=== PATIENT | female | born 1945 | race Caucasian/White ===

== ENCOUNTER → 2017-10-27 | Outpatient (CLI) | payer OTHER ==
[~2017-10-27] MED LIST: REGADENOSON 0.4 MG/5 ML SYRINGE ONE
== END | disposition home or self-care (01) ==
LOC: CFH 12:48
PROVIDERS: ATTEND Internal Medicine Cardiovascular Disease
DX: Z01.818 Encounter for other preprocedural examination (principal); R94.31 Abnormal electrocardiogram [ECG] [EKG]; F17.210 Nicotine dependence, cigarettes, uncomplicated
CPT/HCPCS: 78452; 93017; A9502; J2785

== ENCOUNTER → 2017-10-28 | Outpatient (CLI) | payer OTHER ==
[~2017-10-28] MED LIST changes: +BUPR150T20 PO; +CLINDAMYCIN 150 MG/ML, 6ML ONE; +LEVO137T2 PO; +LOSA50TA6 PO; +OMEP-110 PO; -REGADENOSON 0.4 MG/5 ML SYRINGE ONE; +VERA240T86 PO
== END | disposition home or self-care (01) ==
LOC: CVU 11:46
PROVIDERS: ATTEND Internal Medicine Cardiovascular Disease
DX: Z01.810 Encounter for preprocedural cardiovascular examination (principal); I74.5 Embolism and thrombosis of iliac artery; I35.8 Other nonrheumatic aortic valve disorders; I51.7 Cardiomegaly; I10 Essential (primary) hypertension; Q21.1 Atrial septal defect; F17.200 Nicotine dependence, unspecified, uncomplicated
CPT/HCPCS: 93306; 93978

== ENCOUNTER 2017-11-02 10:30 | Inpatient (IN) | payer OTHER ==
[2017-10-31 13:01] LABS: CHLORIDE 105 mmol/L (98-107)
[2017-10-31 13:06] LABS: ALANINE AMINOTRANSFERASE 24 U/L (12-78); ALBUMIN 3.7 g/dL (3.4-5.0); ALKALINE PHOSPHATASE 76 U/L (45-117); ANION GAP 9 mmol/L (5-15); BILIRUBIN,TOTAL 0.4 mg/dL (0.2-1.0); CALCIUM 8.8 mg/dL (8.5-10.1); CREATININE 1.17 mg/dL (0.55-1.02); TOTAL PROTEIN 7.7 g/dL (6.4-8.2)
[~2017-11-02] VITALS: Ht 160 cm; Wt 85.0 kg
[~2017-11-02 10:30] MED LIST changes: -CLINDAMYCIN 150 MG/ML, 6ML ONE
[2017-11-02] MEDS ORDERED: FENTANYL PF 100 MCG/2ML ONE (10:38)
[2017-11-02] MEDS ORDERED: LACTATED RINGERS 1,000 ML IV SCH (11:15)
[2017-11-02 11:18] VITALS: BP 136/71
[2017-11-02] MEDS ORDERED: GABAPENTIN 300 MG CAPSULE PO ONE (11:30)
[2017-11-02] MEDS ORDERED: SCOPOLAMINE PATCH, 1.5MG PATCH.TD72 TD ONE (11:30)
[2017-11-02] MEDS ORDERED: ACETAMINOPHEN 500 MG TABLET PO ONE (11:30)
[2017-11-02] MEDS ORDERED: GLYCOPYRROLATE 0.2MG/1ML, 5ML ONE (11:52)
[2017-11-02] MEDS ORDERED: DEXAMETHASONE 4 MG/ML, 1ML ONE (11:52)
[2017-11-02] MEDS ORDERED: PROPOFOL 10 MG/ML, 20ML ONE (11:52)
[2017-11-02] MEDS ORDERED: CLINDAMYCIN 150 MG/ML, 6ML ONE (11:52)
[2017-11-02] MEDS ORDERED: EPHEDRINE 50 MG/ML, 1ML ONE (11:52)
[2017-11-02] MEDS ORDERED: SUCCINYLCHOLINE 20 MG/ML, 10ML ONE (11:52)
[2017-11-02] MEDS ORDERED: ONDANSETRON 2MG/ML, 2ML ONE ×2 (11:52)
[2017-11-02] MEDS ORDERED: ROCURONIUM 10 MG/ML,10ML ONE (11:52)
[2017-11-02] MEDS ORDERED: CEFAZOLIN 1,000 MG ONE (11:52)
[2017-11-02] MEDS ORDERED: PROPOFOL 50 ML ONE ×2 (12:05→12:43)
[2017-11-02] MEDS ORDERED: ROPIvacaine/PF 0.2%, 100ML 550 ML (check volume) EPIDCONT ONE ×2 (13:00)
[2017-11-02] MEDS ORDERED: ROPIvacaine/PF 0.2%, 100ML 550 ML (check volume) INJ ONE (13:00)
[2017-11-02] MEDS ORDERED: DIAZEPAM 5 MG/ML, 2ML IVPush PRN (13:30)
[2017-11-02] MEDS ORDERED: OXYcodone 5 MG/5 ML ORAL.SOL UDC PO PRN (13:30)
[2017-11-02] MEDS ORDERED: HYDROmorphone 1 MG/ML, 1ML IV PRN (13:30)
[2017-11-02] MEDS ORDERED: PROMETHAZINE 25 MG/ML, 1ML IV PRN (13:30)
[2017-11-02] MEDS ORDERED: FENTANYL PF 100 MCG/2ML IV PRN (13:30)
[2017-11-02] MEDS ORDERED: MEPERIDINE/PF 25MG/0.5ML IVPush PRN (13:30)
[2017-11-02] MEDS ORDERED: OXYcodone/APAP 5/325MG TABLET PO PRN (16:00)
[2017-11-02] MEDS ORDERED: ONDANSETRON 2MG/ML, 2ML IV PRN (16:00)
[2017-11-02] MEDS: POTASSIUM CHLORIDE 40 MEQ in D5%-0.45% NACL 1,000 ML IV SCH (16:57)
[2017-11-02 18:34] VITALS: BP 135/65
[2017-11-02] MEDS: VERAPAMIL ER 240MG TABLET.ER PO SCH (20:34)
[2017-11-02] MEDS: SODIUM CHLORIDE FLUSH 10ML SYR IVF SCH (20:34)
[2017-11-02] MEDS: CEFAZOLIN PMX 1GM/50ML 50 ML IVPB SCH (20:34)
[2017-11-03 00:13] VITALS: BP 114/68
[2017-11-03] MEDS: CEFAZOLIN PMX 1GM/50ML 50 ML IVPB SCH (04:02)
[2017-11-03 04:58] VITALS: BP 143/76
[2017-11-03] MEDS ORDERED: LEVOTHYROXINE 137 MCG TABLET PO SCH (06:00)
[2017-11-03] MEDS ORDERED: OMEPRAZOLE 20 MG CAPSULE.DR PO SCH (07:30)
[2017-11-03 08:00] VITALS: BP 152/80
[2017-11-03] MEDS ORDERED: BUPROPION SR 150 MG TABLET PO SCH (09:00)
[2017-11-03] MEDS ORDERED: LOSARTAN 50MG TABLET PO SCH (09:00)
[2017-11-03] MEDS: VERAPAMIL ER 240MG TABLET.ER PO SCH (09:10)
[2017-11-03] MEDS: SODIUM CHLORIDE FLUSH 10ML SYR IVF SCH (09:11)
[2017-11-03] MEDS: POTASSIUM CHLORIDE 40 MEQ in D5%-0.45% NACL 1,000 ML IV SCH (09:11)
[2017-11-03 12:59] VITALS: BP 124/75
[2017-11-03] MEDS ORDERED: OXYC5CAP2 PO (14:18)
== END 2017-11-03 14:45 | disposition home or self-care (01) | DRG 483 ==
LOC: ORIP 10:30 → 4NOR 15:40 → DCLOUNGE 11-03 14:32
PROVIDERS: ADMIT Orthopaedic Surgery; ATTEND Orthopaedic Surgery
PROC: 0LS30ZZ Reposition Right Upper Arm Tendon, Open Approach (ICD-10-PCS; 2017-11-02)
PROC: 0RRJ00Z Replacement of Right Shoulder Joint with Reverse Ball and Socket Synthetic Substitute, Open Approach (ICD-10-PCS; principal; 2017-11-02 12:25)
DX: S42.24 4-part fracture of surgical neck of humerus (principal)
CPT/HCPCS: 36415; 80053; 93005; C1713; C1776; J0690; J1100; J2405; J2704; J3010; J3480; J3490; J0330; J7120

== ENCOUNTER 2018-03-29 10:58 | Day surgery (SDC) | payer OTHER ==
[2018-03-27 11:23] LABS: MEAN CORPUSCULAR HEMOGLOBIN 29.3 pg (27.0-34.8); MEAN CORPUSCULAR HGB CONC 33.5 g/dL (32.4-35.8); MEAN CORPUSCULAR VOLUME 87.3 fL (80-100); MEAN PLATELET VOLUME 7.6 fL (7.4-10.4); PLATELET COUNT 295 x10^3/uL (130-400); RED CELL DISTRIBUTION WIDTH 15.2 % (9.6-15.2)
[2018-03-27 11:25] LABS: ANION GAP 8 mmol/L (5-15); BASOPHILS # (AUTO) 0.05 x10^3/uL (0-0.1); BASOPHILS % (AUTO) 1 % (0-1); CALCIUM 8.7 mg/dL (8.5-10.1); CHLORIDE 107 mmol/L (98-107); EOSINOPHILS % (AUTO) 5 % (1-7); LYMPHOCYTES # (AUTO) 1.53 x10^3/uL (1-3.4); LYMPHOCYTES % (AUTO) 17 % (22-44); MD SCAN; MONOCYTES # (AUTO) 0.63 x10^3/uL (0.2-0.8); MONOCYTES % (AUTO) 7 % (2-9); NEUTROPHILS # (AUTO) 6.24 x10^3/uL (1.8-6.8); NEUTROPHILS % (AUTO) 71 % (42-75)
[~2018-03-29] VITALS: Ht 160 cm; Wt 85.0 kg
[~2018-03-29 10:58] MED LIST changes: +ATOR20TA PO; +BUPR150T73 PO; +OXYC5CAP2 PO
[2018-03-29 11:35] VITALS: BP 121/72
[2018-03-29] MEDS ORDERED: SODIUM CHLORIDE 0.9% 1,000 ML IV SCH (11:37)
[2018-03-29] MEDS ORDERED: VISIPAQUE 270 MG/ML, 50ML BOTTLE ONE (13:00)
[2018-03-29] MEDS ORDERED: MIDAZOLAM 1 MG/ML, 5ML ONE (13:26)
[2018-03-29] MEDS ORDERED: PROTAMINE SULFATE 10 MG/ML, 25ML ONE (13:26)
[2018-03-29] MEDS ORDERED: FLUMAZENIL 0.1 MG/1 ML, 5ML ONE (13:26)
[2018-03-29] MEDS ORDERED: NALOXONE 1 MG/ML, 2ML ONE (13:26)
[2018-03-29] MEDS ORDERED: FENTANYL PF 100 MCG/2ML ONE (13:26)
[2018-03-29] MEDS ORDERED: NITROGLYCERIN 5 MG/ML, 10ML ONE (13:26)
[2018-03-29] MEDS ORDERED: HEPARIN 1,000 UNITS/ML, 10ML ONE (13:26)
[2018-03-29] MEDS ORDERED: OXYcodone/APAP 5/325MG TABLET ONE (16:14)
[2018-03-29] MEDS ORDERED: OXYcodone/APAP 5/325MG TABLET PO ONE (16:30)
[2018-03-29] MEDS ORDERED: OXYcodone/APAP 5/325MG TABLET PO PRN (16:30)
== END 2018-03-29 19:00 | disposition home or self-care (01) ==
LOC: OUT 10:58
PROVIDERS: ATTEND Internal Medicine Cardiovascular Disease
DX: I70.213 Atherosclerosis of native arteries of extremities with intermittent claudication, bilateral legs (principal); J44.9 Chronic obstructive pulmonary disease, unspecified; I10 Essential (primary) hypertension; E78.5 Hyperlipidemia, unspecified; Z88.6 Allergy status to analgesic agent; F17.210 Nicotine dependence, cigarettes, uncomplicated
CPT/HCPCS: 36415; 37221; 75630; 80048; 85025; 99156; 99157; C1725; C1769; C1876; J1644; J2250; J2310; J2720; J3010; Q9966

== ENCOUNTER 2019-08-28 11:07 | Outpatient (CLI) | payer MEDICARE ==
[~2019-08-28 11:07] MED LIST changes: +LOSA50TA14 PO; -LOSA50TA6 PO; +VERA240T10 PO; -VERA240T86 PO
== END 2019-08-28 23:59 | disposition home or self-care (01) ==
LOC: CFH 11:07
PROVIDERS: ATTEND Family Medicine
DX: Z12.31 Encounter for screening mammogram for malignant neoplasm of breast (principal); N64.89 Other specified disorders of breast; F17.200 Nicotine dependence, unspecified, uncomplicated
CPT/HCPCS: 77067